=== PATIENT | female | born 1995 | race Two or more races ===

== ENCOUNTER 2020-02-27 04:35 | Emergency (ER) | payer OTHER ==
--- NOTE | 2020-02-27 05:04 | EDM.PDOC ---
ED HPI GENERAL MEDICAL PROBLEM - General Chief Complaint: Abdominal Pain Stated Complaint: STOMACH PAIN Time Seen by Provider: 02/27/20 04:58 Source of Information: Reports: Patient History Limitations: Reports: No Limitations - History of Present Illness INITIAL COMMENTS - FREE TEXT/NARRATIVE: 24-year-old female who reports she has had intermittent sharp lower abdominal pains for the past 2-3 weeks and she has had some vaginal spotting during this time. She reports that the pain has been intermittent throughout the day and she has taken [place] and Midol without any relief of her discomfort. She had initially thought it was just "period cramps" but it has persisted and she has not developed a normal menstrual period. She states beginning at approximately 11 PM last night the pain began again and it has been worse since that time and it also has been constant. There has been a waxing and waning of the pain over the night and at times she has had some nausea associated with it. She has had no vomiting. She has had normal bowel movements. She has had no dysuria. She has been eating and drinking normally. No fevers. No chills. She reports the pain as an 8/10. It does not radiate. There is no back pain associated with this. She states that her menstrual periods are usually irregular. There are no exacerbating or alleviating factors. There are no other associated signs or symptoms. There are no other modifying factors. Onset: Other (2-3 weeks.) Duration: Getting Worse (Since 11 PM last night.) Location: Reports: Abdomen Quality: Reports: Sharp Severity: Moderate (to severe) Improves with: Reports: None Worsens with: Reports: None Context: Reports: Other (As above) Associated Symptoms: Reports: Nausea/Vomiting, Other (Except as above) Treatments CONTINUOUS PICKLING LINE PICKLER: Reports: Other (see below) (Nothing tonight.) Lower Abdominal Pain Score (Numeric/FACES): 8 - Related Data Allergies Allergy/AdvReac Type Severity Reaction Status Date / Time No Known Allergies Allergy Verified 02/27/20 04:47 Home Meds: Home Meds NK [No Known Home Meds] 02/27/20 [History] Past Medical History Respiratory History: Reports: Asthma - Past Surgical History Other Surgical History Comment: No previous surgeries. Social & Family History - Tobacco Use Smoking Status *Q: Current Some Day Smoker - Caffeine Use Caffeine Use: Reports: Coffee - Alcohol Use Alcohol Use History: Yes Alcohol Use Frequency: Socially - Recreational Drug Use Recreational Drug Use: No - Living Situation & Occupation Occupation: Employed (Works at [employer]) ED ROS GENERAL - Review of Systems Review Of Systems: See Below Constitutional: Reports: No Symptoms HEENT: Reports: No Symptoms Respiratory: Reports: No Symptoms Cardiovascular: Reports: No Symptoms Endocrine: Reports: No Symptoms GI/Abdominal: Reports: Abdominal Pain, Nausea. Denies: Diarrhea, Vomiting : Reports: Irregular Menses, Other (Vaginal spotting). Denies: Discharge, Dysuria, Frequency Musculoskeletal: Reports: No Symptoms Skin: Reports: No Symptoms Neurological: Reports: No Symptoms Hematologic/Lymphatic: Reports: No Symptoms Immunologic: Reports: No Symptoms ED EXAM, GI/ABD - Physical Exam Exam: See Below Exam Limited By: No Limitations General Appearance: Alert, WD/WN, No Apparent Distress Eyes: Bilateral: Normal Appearance, EOMI Ears: Normal External Exam, Hearing Grossly Normal Nose: Normal Inspection, Normal Mucosa, No Blood Throat/Mouth: Normal Inspection, Normal Oropharynx, Normal Voice, No Airway Compromise Head: Atraumatic, Normocephalic Neck: Normal Inspection, Supple, Non-Tender, Full Range of Motion Respiratory/Chest: No Respiratory Distress, Lungs Clear, Normal Breath Sounds, No Accessory Muscle Use, Chest Non-Tender Cardiovascular: Normal Peripheral Pulses, Regular Rate, Rhythm, No Murmur GI/Abdominal Exam: Normal Bowel Sounds, Soft, Non-Tender, No Mass Back Exam: Normal Inspection, Full Range of Motion Extremities: Normal Inspection, Normal Range of Motion, Non-Tender, No Pedal Edema, Normal Capillary Refill Neurological: Alert, Oriented, CN II-XII Intact, Normal Cognition, No Motor/Sensory Deficits Psychiatric: Normal Affect Skin Exam: Warm, Dry, Intact, Normal Color, No Rash Lymphatic: No Adenopathy Course - Vital Signs Last Recorded V/S: Last Vital Signs Temp 36.9 C 02/27/20 04:48 Pulse 70 02/27/20 06:12 Resp 16 02/27/20 06:12 BP 154/88 H 02/27/20 06:12 Pulse Ox 100 02/27/20 06:12 - Orders/Labs/Meds Orders: Active Orders 24 hr Category Date Time Status Insert Urinary Catheter [OM.PC] Stat Care 02/27/20 05:12 Ordered Urinary Catheter Assessment [RC] QSHIFT Care 02/27/20 05:14 Active CULTURE URINE [RM] Stat Lab 02/27/20 05:23 Received Labs: Laboratory Tests 02/27/20 02/27/20 02/27/20 Range/Units 05:23 05:23 05:25 WBC 7.9 (4.5-12.0) X10-3/uL RBC 4.82 (3.23-5.20) x10(6)uL Hgb 13.1 (11.5-15.5) g/dL Hct 40.8 (30.0-51.3) % MCV 84.6 (80-96) fL MCH 27.2 L (27.7-33.6) pg MCHC 32.2 (32.2-35.4) g/dL RDW 12.6 (11.5-15.5) % Plt Count 321 (125-369) X10(3)uL MPV 8.1 (7.4-10.4) fL Neut % (Auto) 64.4 (46-82) % Lymph % (Auto) 28.4 (13-37) % Page % (Auto) 5.6 (4-12) % Eos % (Auto) 1 (1.0-5.0) % Baso % (Auto) 1 (0-2) % Neut # (Auto) 5.1 (1.6-8.3) # Lymph # (Auto) 2.2 (0.6-5.0) # Page # (Auto) 0.4 (0.0-1.3) # Eos # (Auto) 0.1 (0.0-0.8) # Baso # (Auto) 0.1 (0.0-0.2) # Sodium (135-145) mmol/L Potassium (3.5-5.3) mmol/L Chloride (100-110) mmol/L Carbon Dioxide (21-32) mmol/L BUN (7-18) mg/dL Creatinine (0.55-1.02) mg/dL Est Cr Clr Drug Dosing mL/min Estimated GFR (MDRD) (>60) BUN/Creatinine Ratio (9-20) Glucose (80-116) mg/dL Calcium (8.6-10.2) mg/dL Total Bilirubin (0.1-1.3) mg/dL AST (5-25) IU/L ALT (12-36) U/L Alkaline Phosphatase (56-112) IU/L C-Reactive Protein (0.5-0.9) mg/dL Total Protein (6.0-8.0) g/dL Albumin (3.5-5.2) g/dL Globulin g/dL Albumin/Globulin Ratio Lipase (73-393) U/L HCG, Quant (<5) mIU/mL Urine Color Yellow (YELLOW) Urine Appearance Slightly cloudy (CLEAR) Urine pH 5.0 (5.0-6.5) Ur Specific [place] 1.020 (1.010-1.025) Urine Protein Trace (NEGATIVE) mg/dL Urine Glucose (UA) Normal (NORMAL) mg/dL Urine Ketones 15 H (NEGATIVE) mg/dL Urine Occult Blood Moderate H (NEGATIVE) Urine Nitrite Negative (NEGATIVE) Urine Bilirubin Negative (NEGATIVE) Urine Urobilinogen Normal (NEGATIVE) mg/dL Ur Leukocyte Esterase Negative (NEGATIVE) Urine RBC 5-10 H (0-5) Urine WBC 0-5 (0-5) Ur Squamous Epith Cells Few H (NS,R,O) Urine Bacteria Few H (NS) Urine Mucus Moderate H (NS) Urine HCG, Qual Positive H (NEGATIVE) 02/27/20 02/27/20 02/27/20 Range/Units 05:25 05:25 05:25 WBC (4.5-12.0) X10-3/uL RBC (3.23-5.20) x10(6)uL Hgb (11.5-15.5) g/dL Hct (30.0-51.3) % MCV (80-96) fL MCH (27.7-33.6) pg MCHC (32.2-35.4) g/dL RDW (11.5-15.5) % Plt Count (125-369) X10(3)uL MPV (7.4-10.4) fL Neut % (Auto) (46-82) % Lymph % (Auto) (13-37) % Page % (Auto) (4-12) % Eos % (Auto) (1.0-5.0) % Baso % (Auto) (0-2) % Neut # (Auto) (1.6-8.3) # Lymph # (Auto) (0.6-5.0) # Page # (Auto) (0.0-1.3) # Eos # (Auto) (0.0-0.8) # Baso # (Auto) (0.0-0.2) # Sodium 138 (135-145) mmol/L Potassium 3.6 (3.5-5.3) mmol/L Chloride 103 (100-110) mmol/L Carbon Dioxide 25 (21-32) mmol/L BUN 9 (7-18) mg/dL Creatinine 0.7 (0.55-1.02) mg/dL Est Cr Clr Drug Dosing 96.32 mL/min Estimated GFR (MDRD) > 60 (>60) BUN/Creatinine Ratio 12.9 (9-20) Glucose 104 (80-116) mg/dL Calcium 7.7 L (8.6-10.2) mg/dL Total Bilirubin 0.2 (0.1-1.3) mg/dL AST 15 (5-25) IU/L ALT 21 (12-36) U/L Alkaline Phosphatase 80 (56-112) IU/L C-Reactive Protein 1.2 H (0.5-0.9) mg/dL Total Protein 7.2 (6.0-8.0) g/dL Albumin 3.3 L (3.5-5.2) g/dL Globulin 3.9 g/dL Albumin/Globulin Ratio 0.9 Lipase 110 (73-393) U/L HCG, Quant 7071 (<5) mIU/mL Urine Color (YELLOW) Urine Appearance (CLEAR) Urine pH (5.0-6.5) Ur Specific [place] (1.010-1.025) Urine Protein (NEGATIVE) mg/dL Urine Glucose (UA) (NORMAL) mg/dL Urine Ketones (NEGATIVE) mg/dL Urine Occult Blood (NEGATIVE) Urine Nitrite (NEGATIVE) Urine Bilirubin (NEGATIVE) Urine Urobilinogen (NEGATIVE) mg/dL Ur Leukocyte Esterase (NEGATIVE) Urine RBC (0-5) Urine WBC (0-5) Ur Squamous Epith Cells (NS,R,O) Urine Bacteria (NS) Urine Mucus (NS) Urine HCG, Qual (NEGATIVE) - Re-Assessments/Exams Free Text/Narrative Re-Assessment/Exam: 02/27/20 06:20: Patient has remained hemodynamically stable. Her blood pressure has actually been elevated since arrival and she has remained nontoxic. Her abdominal exam remains benign at this point. Her test was positive and the quantitative hCG came back at 7071. Her blood tests and the urine were otherwise unremarkable. The patient has an early that could either be early normal , threatened or an ectopic . She will need pelvic ultrasound urgently to sort this out. We do not have ultrasound capabilities at this time at [facility] and therefore she will need to be transferred to a facility with ultrasound capabilities. I discussed this with the patient and also answered her questions and she has directed me to discuss her case with the doctors at [facility]. 02/27/20 06:40: I discussed the patient's case with Dr. Rushing, ED physician at [facility], and he has agreed to accept the patient in transfer. The patient will be transferred via private vehicle to the emergency department at [facility] for completion of her evaluation. The patient is in agreement with this plan. She will be told to stay at NPO status for now and to go directly to the emergency department at [facility]. Departure - Departure Time of Disposition: 06:45 Disposition: DC/Tfer to Acute Hospital 02 Condition: Good (Stable) Clinical Impression: at early stage, Pelvic pain during in first trimester, antepartum, Bleeding in early - Discharge Information Referrals: PCP,None [Primary Care Provider] - Forms: ED Department Discharge Additional Instructions: Go directly to the emergency department at [facility]. Do not have anything to eat or drink until cleared to do so by the doctors at [facility]. You are going to [facility] to have an ultrasound performed urgently as we discussed because you are and it needs to be determined whether you have an ectopic or not and ultrasound is not available at [facility] [place] at this time.. Sepsis Event Note (ED) - Evaluation Sepsis Screening Result: No Definite Risk - Focused Exam Vital Signs: Vital Signs Temp Pulse Resp BP Pulse Ox 02/27/20 06:12 70 16 154/88 H 100 02/27/20 04:48 36.9 C 76 16 153/85 H 100 - My Orders Last 24 Hours: My Active Orders 02/27/20 05:12 Insert Urinary Catheter [OM.PC] Stat 02/27/20 05:14 Urinary Catheter Assessment [RC] QSHIFT 02/27/20 05:23 CULTURE URINE [RM] Stat - Assessment/Plan Last 24 Hours: My Active Orders 02/27/20 05:12 Insert Urinary Catheter [OM.PC] Stat 02/27/20 05:14 Urinary Catheter Assessment [RC] QSHIFT 02/27/20 05:23 CULTURE URINE [RM] Stat
== END 2020-02-27 06:54 ==
LOC: FB.ED 04:35
DX: O20.9 Hemorrhage in early pregnancy, unspecified (principal); O26.891 Other specified pregnancy related conditions, first trimester; R10.2 Pelvic and perineal pain; O99.331 Smoking (tobacco) complicating pregnancy, first trimester; F17.200 Nicotine dependence, unspecified, uncomplicated
CPT/HCPCS: 36415; 51701; 80053; 81001; 81025; 83690; 84702; 85025; 86140; 87086; 99284-25; 99285

== ENCOUNTER 2020-06-06 06:10 | Emergency (ER) | payer OTHER ==
--- NOTE | 2020-06-06 06:39 | EDM.PDOC ---
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 She did not hit her back or side. She really had no pain at the time and felt no nausea or vomiting and noted no change in her urine after this. She awoke at approximately 3 AM and had right flank pain that was a pressure type pain. It is an 8/10. She did not sleep for the rest of the night. Nothing really seems to make the pain better. Nothing really seems to make the pain worse. She has had urine output this morning and there was no blood in her urine. She has had no dysuria. No fevers or chills. She presents to the emergency department via private vehicle. There are no other associated signs or symptoms. There are no other modifying factors. Onset: Today Duration: Constant (3 AM) Location: Reports: Other (Right flank) Quality: Reports: Pressure Severity: Moderate (to severe.) Improves with: Reports: None Worsens with: Reports: Other (Palpation) Context: Reports: Other (As above) Associated Symptoms: Reports: No Other Symptoms Treatments ASSOCIATE FINANCIAL REPRESENTATIVE: Reports: Other (see below) (Nothing.) right side flank Pain Score (Numeric/FACES): 6 - Related Data Allergies Allergy/AdvReac Type Severity Reaction Status Date / Time No Known Allergies Allergy Verified 02/27/20 04:47 Home Meds: Home Meds NK [No Known Home Meds] 02/27/20 [History] Past Medical History Respiratory History: Reports: Asthma - Past Surgical History Other Surgical History Comment: No previous surgeries. Social & Family History - Tobacco Use Tobacco Use Status *Q: Never Tobacco User - Caffeine Use Caffeine Use: Reports: Coffee - Alcohol Use Alcohol Use History: No - Living Situation & Occupation Occupation: Employed (Works at [employer]) ED ROS GENERAL - Review of Systems Review Of Systems: See Below Constitutional: Reports: No Symptoms HEENT: Reports: No Symptoms Respiratory: Reports: No Symptoms Cardiovascular: Reports: No Symptoms Endocrine: Reports: No Symptoms GI/Abdominal: Denies: Abdominal Pain : Reports: Flank Pain. Denies: Dysuria, Hematuria Musculoskeletal: Reports: No Symptoms Skin: Reports: No Symptoms Neurological: Reports: No Symptoms Hematologic/Lymphatic: Reports: No Symptoms Immunologic: Reports: No Symptoms ED EXAM - Physical Exam Exam: See Below Exam Limited By: No Limitations General Appearance: Alert, WD/WN, Moderate Distress (Appears in some pain. Oth erwise nontoxic.) Eye Exam: Bilateral Eye: EOMI, Normal Inspection, PERRL Ears: Normal External Exam, Hearing Grossly Normal Nose: Normal Inspection, Normal Mucosa, No Blood Throat/Mouth: Normal Inspection, Normal Oropharynx, Normal Voice, No Airway Compromise Head: Atraumatic, Normocephalic Neck: Normal Inspection, Supple, Non-Tender, Full Range of Motion Respiratory/Chest: No Respiratory Distress, Lungs Clear, Normal Breath Sounds, No Accessory Muscle Use, Chest Non-Tender Cardiovascular: Normal Peripheral Pulses, Regular Rate, Rhythm, No JVD GI/Abdominal Exam: Normal Bowel Sounds, Soft, Tender (Mildly tender along right lower quadrant. No uterine tenderness. ) Heart Tones: Present Heart Tones per Min: 156 Back Exam: Normal Inspection Extremities: Normal Inspection, Normal Range of Motion, Non-Tender, No Pedal Edema, Normal Capillary Refill Neurological: Alert, Oriented, CN II-XII Intact, Normal Cognition, No Motor/Sensory Deficits Psychiatric: Normal Affect Skin Exam: Warm, Dry, Intact, Normal Color, No Rash Course - Vital Signs Last Recorded V/S: Last Vital Signs Temp 35.9 C L 06/06/20 06:10 Pulse 86 06/06/20 06:10 Resp 17 06/06/20 06:10 BP 157/89 H 06/06/20 06:10 Pulse Ox 100 06/06/20 06:10 - Orders/Labs/Meds Orders: Active Orders 24 hr Category Date Time Status CBC WITH AUTO DIFF [HEME] Stat Lab 06/06/20 07:02 Received COMPREHENSIVE METABOLIC PN,CMP [CHEM] Stat Lab 06/06/20 07:02 Received CRP [C-REACTIVE PROTEIN] [CHEM] Stat Lab 06/06/20 07:02 Received Labs: Laboratory Tests 06/06/20 Range/Units 06:28 Urine Color Yellow (YELLOW) Urine Appearance Clear (CLEAR) Urine pH 5.0 (5.0-6.5) Ur Specific [place] 1.030 H (1.010-1.025) Urine Protein Negative (NEGATIVE) mg/dL Urine Glucose (UA) Normal (NORMAL) mg/dL Urine Ketones Negative (NEGATIVE) mg/dL Urine Occult Blood Negative (NEGATIVE) Urine Nitrite Negative (NEGATIVE) Urine Bilirubin Negative (NEGATIVE) Urine Urobilinogen Normal (NEGATIVE) mg/dL Ur Leukocyte Esterase Negative (NEGATIVE) Urine RBC 0-5 (0-5) Urine WBC 0-5 (0-5) Ur Squamous Epith Cells Moderate H (NS,R,O) Urine Bacteria Occasional H (NS) Meds: Medications Discontinued Medications Generic Name Dose Route Start Last Admin Trade Name Freq PRN Reason Stop Dose Admin Acetaminophen 1,000 mg 06/06/20 06:54 06/06/20 07:05 Tylenol Extra Strength PO 06/06/20 06:55 1,000 mg ONETIME ONE Administration - Re-Assessments/Exams Free Text/Narrative Re-Assessment/Exam: 06/06/20 07:09; urinalysis was essentially negative with 0-5 red cells and 0-5 white cells. Order a CBC, CMP and CRP. He does have some right lateral lower abdominal pain. I think the possible etiologies are kidney stone, appendicitis, musculoskeletal, something during her related. I think the patient will most probably need an ultrasound. The research food technologist will not be in until approximately 8 am or sometime later this morning area At this point, I'm turning the patient over to Dr. Ryder. Please see his note in regard to the patient's disposition which will be based on her clinical course and diagnostic data still pending. Departure - Departure Time of Disposition: 07:11 Disposition: Still A Patient 30 Clinical Impression: Right flank pain, Abdominal pain affecting - Discharge Information Referrals: PCP,Not In Area [Primary Care Provider] - Forms: ED Department Discharge Sepsis Event Note (ED) - Evaluation Sepsis Screening Result: No Definite Risk - Focused Exam Vital Signs: Vital Signs Temp Pulse Resp BP Pulse Ox 06/06/20 06:10 35.9 C L 86 17 157/89 H 100 - My Orders Last 24 Hours: My Active Orders 06/06/20 07:02 CBC WITH AUTO DIFF [HEME] Stat COMPREHENSIVE METABOLIC PN,CMP [CHEM] Stat CRP [C-REACTIVE PROTEIN] [CHEM] Stat - Assessment/Plan Last 24 Hours: My Active Orders 06/06/20 07:02 CBC WITH AUTO DIFF [HEME] Stat COMPREHENSIVE METABOLIC PN,CMP [CHEM] Stat CRP [C-REACTIVE PROTEIN] [CHEM] Stat
[2020-06-06] MEDS ORDERED: Acetaminophen 500 MG Tab PO ONE (06:54)
== END 2020-06-06 08:01 | disposition home or self-care (01) ==
LOC: FB.ED 06:10
DX: O99.891 Other specified diseases and conditions complicating pregnancy (principal); R10.31 Right lower quadrant pain; O99.512 Diseases of the respiratory system complicating pregnancy, second trimester; J45.909 Unspecified asthma, uncomplicated; Z3A.19 19 weeks gestation of pregnancy
CPT/HCPCS: 36415; 80053; 81001; 85025; 86140; 99284; A9270